=== PATIENT | female | born 1990 | race Caucasian/White ===

== ENCOUNTER 2018-09-07 13:40 | Observation (INO) | payer OTHER ==
[~2018-09-07] VITALS: Ht 180.3 cm; Wt 118.8 kg
[~2018-09-07 13:40] MED LIST: OXYTOCIN 30 UNITS/LACT RINGERS 500 ML IV ONE; RINGERS SOLUTION,LACTATED 1,000 ML IV PRN
[2018-09-07] MEDS ORDERED: METHYLERGONOVINE MALEATE 0.2 MG/ML VIAL IM PRN (13:45)
[2018-09-07] MEDS ORDERED: METOCLOPRAMIDE HCL 5 MG/ML 2 ML VIAL IVP PRN (13:45)
[2018-09-07] MEDS ORDERED: FentaNYL CITRATE-PF 100 MCG/2 ML VIAL IVP PRN (13:45)
[2018-09-07] MEDS ORDERED: LIDOCAINE/PF 1% 30 ML VIAL INJ PRN (13:45)
[2018-09-07] MEDS ORDERED: CITRIC ACID/SODIUM CITRATE 30 ML SOLUTION UDCUP PO PRN (13:45)
[2018-09-07 14:51] VITALS: BP 109/64
[2018-09-07 15:08] LABS: BASOPHILS % (AUTO) 0.4 % (0.0-2.0); EOSINOPHILS % (AUTO) 0.2 % (1.0-6.0); HEMATOCRIT 38.9 % (36-46); HEMOGLOBIN 13.2 g/dL (12.0-16.0); LYMPHOCYTES # (AUTO) 1.5 K/uL (1.0-4.8); LYMPHOCYTES % (AUTO) 15.6 % (22.0-44.0); MEAN CORPUSCULAR HEMOGLOBIN 30.4 pg (26.0-34.0); MEAN CORPUSCULAR VOLUME 89 fL (80-100); MONOCYTES # (AUTO) 0.8 K/uL (0.1-1.0); MONOCYTES % (AUTO) 8.5 % (2.0-9.0); NEUTROPHILS # (AUTO) 7.1 K/uL (1.8-7.7); NEUTROPHILS % (AUTO) 75.3 % (40.0-70.0); PLATELET COUNT (AUTO) 226 K/uL (150-450); RED BLOOD CELL COUNT(AUTO) 4.35 MIL/uL (4.00-5.20)
[2018-09-07] MEDS ORDERED: MISOPROSTOL 50 MCG TABLET PO ONE (15:15)
[2018-09-07 16:56] LABS: APPEARANCE,URINE CLOUDY (CLEAR); BILIRUBIN,URINE NEGATIVE (NEGATIVE); GLUCOSE, URINE (UA) NEGATIVE (NEGATIVE); KETONES,URINE TRACE mg/dL (NEGATIVE); LEUKOCYTE ESTERASE ,URINE NEGATIVE (NEGATIVE); NITRATE,URINE NEGATIVE (NEGATIVE); OCCULT BLOOD,URINE TRACE (NEGATIVE); PH,URINE 5.5 (5.0-8.0); PROTEIN,URINE NEGATIVE (NEGATIVE); UROBILINOGEN,URINE 0.2 mg/dL (<=1.0)
[2018-09-07 17:12] LABS: BACTERIA,URINE Moderate /HPF (None Seen); RBC,URINE 0-2 /HPF (0-2); WBC,URINE 0-2 /HPF (0-5)
[2018-09-07 17:13] LABS: MUCUS,URINE Few LPF (None Seen); SQUAMOUS EPITHELIAL CELL,UR Moderate /LPF (None Seen)
[2018-09-07] MEDS: MISOPROSTOL 50 MCG TABLET PO SCH ×2 (19:50→23:51)
[2018-09-07] MEDS: OXYGEN THERAPY IH SCH ×2 (19:51→20:00)
[2018-09-07] MEDS: RINGERS SOLUTION,LACTATED 1,000 ML IV SCH (20:58)
[2018-09-08] MEDS: MISOPROSTOL 50 MCG TABLET PO SCH (03:54)
[2018-09-08] MEDS ORDERED: BUTORPHANOL TARTRATE 2 MG/ML VIAL IVP PRN (04:30)
[2018-09-08] MEDS: RINGERS SOLUTION,LACTATED 1,000 ML IV SCH (04:56)
[2018-09-08] MEDS ORDERED: OXYTOCIN 30 UNITS/LACT RINGERS 500 ML IV PRN (07:45)
== END 2018-09-08 13:00 | disposition home or self-care (01) ==
LOC: 4S 13:40 → OBSVTOIN 13:40 → INTOOBSV 13:40 → UNDODISOB 09-08 13:00 → UNDODISIN 09-08 13:00
PROVIDERS: ADMIT Obstetrics & Gynecology; ATTEND Obstetrics & Gynecology
DX: O26.893 Other specified pregnancy related conditions, third trimester (principal); R10.9 Unspecified abdominal pain; O48.0 Post-term pregnancy; Z3A.40 40 weeks gestation of pregnancy
CPT/HCPCS: 36415; 76805; 81001; 85025; 86850; 86900; 86901; 87086; 96365; 96366; 96375; G0378 ×2; J0595; J2590; J7120

== ENCOUNTER 2018-09-12 15:14 | Inpatient (IN) | payer OTHER ==
[~2018-09-12] VITALS: Ht 186 cm; Wt 120.4 kg
[2018-09-14] MEDS ORDERED: RINGERS SOLUTION,LACTATED 1,000 ML IV SCH (21:18)
[2018-09-14] MEDS ORDERED: OXYTOCIN 30 UNITS/LACT RINGERS 500 ML IV ONE (21:18)
[2018-09-14] MEDS ORDERED: RINGERS SOLUTION,LACTATED 1,000 ML IV PRN (21:18)
[2018-09-14] MEDS ORDERED: PREN1TAB80 PO (21:27)
[2018-09-14] MEDS ORDERED: FentaNYL CITRATE-PF 100 MCG/2 ML VIAL IVP PRN (21:30)
[2018-09-14] MEDS ORDERED: LIDOCAINE/PF 1% 30 ML VIAL INJ PRN (21:30)
[2018-09-14] MEDS ORDERED: METOCLOPRAMIDE HCL 5 MG/ML 2 ML VIAL IVP PRN (21:30)
[2018-09-14] MEDS ORDERED: CITRIC ACID/SODIUM CITRATE 30 ML SOLUTION UDCUP PO PRN (21:30)
[2018-09-14] MEDS ORDERED: METHYLERGONOVINE MALEATE 0.2 MG/ML VIAL IM PRN (21:30)
[2018-09-14 21:55] VITALS: BP 113/72
[2018-09-14] MEDS: MISOPROSTOL 50 MCG TABLET PO SCH (22:08)
[2018-09-14 22:26] LABS: BASOPHILS % (AUTO) 0.2 % (0.0-2.0); EOSINOPHILS % (AUTO) 0.5 % (1.0-6.0); HEMATOCRIT 34.4 % (36-46); HEMOGLOBIN 12.2 g/dL (12.0-16.0); LYMPHOCYTES # (AUTO) 1.8 K/uL (1.0-4.8); LYMPHOCYTES % (AUTO) 19.6 % (22.0-44.0); MEAN CORPUSCULAR HGB CONC 35.5 G/dL (31.0-37.0); MEAN CORPUSCULAR VOLUME 88 fL (80-100); MONOCYTES % (AUTO) 10.5 % (2.0-9.0); NEUTROPHILS # (AUTO) 6.3 K/uL (1.8-7.7); NEUTROPHILS % (AUTO) 69.2 % (40.0-70.0); PLATELET COUNT (AUTO) 225 K/uL (150-450); RED BLOOD CELL COUNT(AUTO) 3.93 MIL/uL (4.00-5.20); RED CELL DISTRIBUTION WIDTH 13.9 % (11.5-14.5)
[2018-09-15] MEDS: MISOPROSTOL 50 MCG TABLET PO SCH ×2 (02:21→06:19)
[2018-09-15] MEDS ORDERED: ROPIVACAINE HCL/PF 0.2% 100 ML ED ONE (08:25)
[2018-09-15] MEDS ORDERED: OXYTOCIN 30 UNITS/LACT RINGERS 500 ML IV PRN (08:30)
[2018-09-15] MEDS ORDERED: ROPIVACAINE HCL/PF 0.2% 100 ML ED PRN (08:54)
[2018-09-15] MEDS ORDERED: ONDANSETRON HCL 4 MG/2 ML VIAL IVP PRN (09:00)
[2018-09-15] MEDS ORDERED: NALBUPHINE HCL 10 MG/ML VIAL IVP PRN (09:00)
[2018-09-15] MEDS ORDERED: DiphenhydrAMINE HCL 50 MG/ML VIAL IVP PRN (09:00)
[2018-09-15] MEDS ORDERED: MINERAL OIL 30 ML UDCUP VG ONE (15:45)
[2018-09-15] MEDS ORDERED: GLYCERIN/WITCH HAZEL LEAF 40 PADS JAR TP PRN (19:45)
[2018-09-15] MEDS ORDERED: BENZOCAINE 20%/MENTHOL 56 GM SPRAY CANISTER TP PRN (19:45)
[2018-09-15] MEDS ORDERED: OxyCODONE HCL/ACETAMINOPHEN 5-325 MG TABLET PO PRN ×2 (19:45)
[2018-09-15] MEDS ORDERED: LANOLIN 7 GM OINTMENT TP PRN (19:45)
[2018-09-15] MEDS: IBUPROFEN 800 MG TABLET PO PRN (19:56)
[2018-09-15] MEDS: MAGNESIUM HYDROXIDE SUSPENSION 30 ML UDCUP PO PRN (21:54)
[2018-09-16 07:19] LABS: BASOPHILS % (AUTO) 0.1 % (0.0-2.0); EOSINOPHILS % (AUTO) 0.2 % (1.0-6.0); HEMATOCRIT 32.3 % (36-46); HEMOGLOBIN 11.8 g/dL (12.0-16.0); LYMPHOCYTES # (AUTO) 2.3 K/uL (1.0-4.8); LYMPHOCYTES % (AUTO) 14.6 % (22.0-44.0); MEAN CORPUSCULAR HEMOGLOBIN 32.3 pg (26.0-34.0); MEAN CORPUSCULAR HGB CONC 36.3 G/dL (31.0-37.0); MEAN CORPUSCULAR VOLUME 89 fL (80-100); MONOCYTES # (AUTO) 1.4 K/uL (0.1-1.0); NEUTROPHILS # (AUTO) 11.9 K/uL (1.8-7.7); NEUTROPHILS % (AUTO) 76.1 % (40.0-70.0); PLATELET COUNT (AUTO)-OB 190 K/uL (150-450); RED BLOOD CELL COUNT(AUTO) 3.64 MIL/uL (4.00-5.20); RED CELL DISTRIBUTION WIDTH 14.2 % (11.5-14.5)
[2018-09-16] MEDS ORDERED: IBUP-2071 PO (09:40)
[2018-09-16] MEDS ORDERED: FERR-89 PO (09:40)
[2018-09-16] MEDS ORDERED: DSS100 PO (09:41)
[2018-09-16] MEDS: IBUPROFEN 800 MG TABLET PO PRN (09:46)
[2018-09-16] MEDS: MAGNESIUM HYDROXIDE SUSPENSION 30 ML UDCUP PO PRN (09:46)
== END 2018-09-16 19:40 | disposition home or self-care (01) | DRG 807 ==
LOC: 4S 09-14 21:11 → OBSVTOIN 09-14 21:11
PROVIDERS: ADMIT Obstetrics & Gynecology; ATTEND Obstetrics & Gynecology
PROC: 10E0XZZ Delivery of Products of Conception, External Approach (ICD-10-PCS; principal; 2018-09-15)
PROC: 0KQM0ZZ Repair Perineum Muscle, Open Approach (ICD-10-PCS; 2018-09-15)
PROC: 3E0R3BZ Introduction of Anesthetic Agent into Spinal Canal, Percutaneous Approach (ICD-10-PCS; 2018-09-15)
PROC: 00HU33Z Insertion of Infusion Device into Spinal Canal, Percutaneous Approach (ICD-10-PCS; 2018-09-15)
DX: O70.1 Second degree perineal laceration during delivery (principal); Z37.0 Single live birth; Z3A.41 41 weeks gestation of pregnancy
CPT/HCPCS: 86850; 86900; 86901; J2590; J2795; J7120